=== PATIENT | female | born 1930 | race African-American/Black ===

== ENCOUNTER 2021-12-23 09:41 | Inpatient (IN) | payer MEDICARE, OTHER ==
[~2021-12-23] VITALS: Ht 154.9 cm; Wt 90.7 kg
[2021-12-23] MEDS ORDERED: METHYLPREDNISOLONE SOD SUCC 125 MG/2ML VIAL IV STA (10:28)
[2021-12-23] MEDS ORDERED: ALBUTEROL/IPRATROPIUM 3 ML NEB NEB ONE (10:30)
[2021-12-23 10:49] LABS: BASOPHILS # (AUTO) 0.1 (0.0-0.1); BASOPHILS % 0.6 % (0.0-1.0); EOSINOPHILS # (AUTO) 0.3 (0.0-0.4); EOSINOPHILS % 3.2 % (0.0-6.0); HEMATOCRIT 42.1 % (34.2-44.1); HEMOGLOBIN 12.6 g/dL (12.0-16.0); LYMPHOCYTES # (AUTO) 2.5 (1.0-3.2); LYMPHOCYTES % 24.2 % (18.0-39.1); MEAN CORPUSCULAR HEMOGLOBIN 27.8 pg (28-32); MEAN CORPUSCULAR HGB CONC 29.9 g/dL (31-35); MEAN CORPUSCULAR VOLUME 92.9 fL (81-99); MONOCYTES # (AUTO) 0.7 (0.2-0.8); MONOCYTES % 6.6 % (4.4-11.3); NEUTROPHILS # (AUTO) 6.6 (2.1-6.9); NEUTROPHILS % 65.1 % (38.7-80.0); PLATELET COUNT 225 x10e3/uL (140-360); RED BLOOD COUNT 4.53 x10e6/uL (3.6-5.1); RED CELL DISTRIBUTION WIDTH 13.3 % (11.7-14.4)
[2021-12-23 11:11] LABS: INR 0.96; PROTHROMBIN TIME 13.7 seconds (11.9-14.5)
[2021-12-23 11:12] LABS: PARTIAL THROMBOPLASTIN TIME 33.4 seconds (23.8-35.5)
[2021-12-23 11:17] LABS: ALBUMIN 3.4 g/dL (3.5-5.0); ALBUMIN/GLOBULIN RATIO 0.8 (0.8-2.0); ANION GAP 14.4 mmol/L (8-16); CALCIUM 9.4 mg/dL (8.4-10.2); CREATININE, SERUM 0.93 mg/dL (0.57-1.11); POTASSIUM 4.4 mmol/L (3.5-5.1)
[2021-12-23 11:24] LABS: CREATINE KINASE MB 1.3 ng/mL (0-5.0)
[2021-12-23] MEDS ORDERED: ONDANSETRON HCL INJ 2MG/ML 2ML 2 MG/ML VIAL IV PRN (13:15)
[2021-12-23] MEDS: METHYLPREDNISOLONE SOD SUCC 125 MG/2ML VIAL IV SCH ×2 (13:48→21:44)
[2021-12-23] MEDS ORDERED: FUROSEMIDE INJ 10 MG/ML 2 ML VIAL IV ONE (14:15)
[2021-12-23] MEDS: NITROGLYCERIN 2% OINT 1 GM PKT TOP SCH ×2 (14:24→23:07)
[2021-12-23] MEDS: ALBUTEROL/IPRATROPIUM 3 ML NEB NEB SCH ×3 (14:50→23:15)
[2021-12-23] MEDS: BENZONATATE 100 MG CAP PO SCH ×2 (15:26→21:42)
[2021-12-23 16:52] LABS: CREATINE KINASE MB 0.7 ng/mL (0-5.0)
[2021-12-23] MEDS ORDERED: SIMVASTATIN20 MG PO (20:45)
[2021-12-23] MEDS ORDERED: METOPROLOL SUCC25 MG PO (20:45)
[2021-12-23 20:53] VITALS: BP 165/79
[2021-12-23 20:55] VITALS: BP 165/79
[2021-12-23 21:00] VITALS: BP 165/79
[2021-12-23] MEDS ORDERED: METOPROLOL SUCCINATE 25 MG TAB XL PO ONE (21:15)
[2021-12-23] MEDS ORDERED: ACETAMINOPHEN 325 MG TAB PO PRN (22:00)
[2021-12-24] VITALS (8 sets, daily range): BP systolic 134–200; BP diastolic 59–86
[2021-12-24] MEDS: ALBUTEROL/IPRATROPIUM 3 ML NEB NEB SCH ×6 (02:04→23:05)
[2021-12-24] MEDS: NITROGLYCERIN 2% OINT 1 GM PKT TOP SCH ×3 (05:02→17:32)
[2021-12-24 05:03] LABS: BASOPHILS % 0.1 % (0.0-1.0); HEMATOCRIT 40.2 % (34.2-44.1); HEMOGLOBIN 12.6 g/dL (12.0-16.0); LYMPHOCYTES % 7.4 % (18.0-39.1); MEAN CORPUSCULAR HEMOGLOBIN 28.2 pg (28-32); MEAN CORPUSCULAR HGB CONC 31.3 g/dL (31-35); MONOCYTES # (AUTO) 0.2 (0.2-0.8); MONOCYTES % 1.2 % (4.4-11.3); NEUTROPHILS # (AUTO) 12.6 (2.1-6.9); PLATELET COUNT 243 x10e3/uL (140-360); RED BLOOD COUNT 4.47 x10e6/uL (3.6-5.1); RED CELL DISTRIBUTION WIDTH 13.1 % (11.7-14.4)
[2021-12-24 05:08] LABS: MEAN CORPUSCULAR VOLUME 89.9 fL (81-99)
[2021-12-24] MEDS: GUAIFENESIN/DEXTROMETHORPHAN LIQD 5 ML UDC NG PRN ×2 (05:21→10:56)
[2021-12-24] MEDS: METHYLPREDNISOLONE SOD SUCC 125 MG/2ML VIAL IV SCH (05:21)
[2021-12-24 05:35] LABS: ALBUMIN 3.3 g/dL (3.5-5.0); ALBUMIN/GLOBULIN RATIO 0.8 (0.8-2.0); ANION GAP 18.5 mmol/L (8-16); CALCIUM 9.3 mg/dL (8.4-10.2); CHOL/HDL RATIO 2.9 (3.0-3.6); CREATININE, SERUM 0.96 mg/dL (0.57-1.11); POTASSIUM 3.5 mmol/L (3.5-5.1)
[2021-12-24 05:54] LABS: CREATINE KINASE MB 1.8 ng/mL (0-5.0)
[2021-12-24 06:11] LABS: BAND NEUTROPHILS % (MANUAL) 1 %; LYMPHOCYTES % (MANUAL) 9 % (19-48); NEUTROPHILS % (MANUAL) 90 % (40-74); PLATELET ESTIMATE ADEQUATE; PLATELET MORPHOLOGY COMMENT NORMAL
[2021-12-24] MEDS: LORATADINE 10 MG TAB PO SCH (09:42)
[2021-12-24] MEDS: METOPROLOL SUCCINATE 25 MG TAB XL PO SCH (09:42)
[2021-12-24] MEDS: BENZONATATE 100 MG CAP PO SCH ×3 (09:42→22:16)
[2021-12-24] MEDS: SIMVASTATIN 20 MG TAB PO SCH (09:42)
[2021-12-24] MEDS: NIFEDIPINE CR 30 MG TAB PO SCH ×2 (10:56→22:16)
[2021-12-24] MEDS: FUROSEMIDE INJ 10 MG/ML 2 ML VIAL IV SCH ×2 (14:14→22:17)
[2021-12-25] VITALS (7 sets, daily range): BP systolic 111–138; BP diastolic 52–65
[2021-12-25] MEDS: ALBUTEROL/IPRATROPIUM 3 ML NEB NEB SCH ×6 (03:55→23:55)
[2021-12-25] MEDS: NITROGLYCERIN 2% OINT 1 GM PKT TOP SCH ×6 (06:00→23:28)
[2021-12-25] MEDS: FUROSEMIDE INJ 10 MG/ML 2 ML VIAL IV SCH ×3 (06:22→21:16)
[2021-12-25] MEDS: GUAIFENESIN/DEXTROMETHORPHAN LIQD 5 ML UDC NG PRN ×2 (06:25→09:37)
[2021-12-25] MEDS: METOPROLOL SUCCINATE 25 MG TAB XL PO SCH (09:38)
[2021-12-25] MEDS: LORATADINE 10 MG TAB PO SCH (09:38)
[2021-12-25] MEDS: SIMVASTATIN 20 MG TAB PO SCH (09:38)
[2021-12-25] MEDS: BENZONATATE 100 MG CAP PO SCH ×3 (09:38→21:16)
[2021-12-25] MEDS: NIFEDIPINE CR 30 MG TAB PO SCH ×2 (09:38→21:17)
[2021-12-25] MEDS ORDERED: ONDANSETRON HCL 4 MG ORAL DISINTEGRATING TAB PO PRN (12:45)
[2021-12-25] MEDS: METHYLPREDNISOLONE SOD SUCC 40 MG/ML VIAL 1ML IV SCH ×2 (13:01→21:16)
[2021-12-26] VITALS: BP 114/59
[2021-12-26] MEDS: ALBUTEROL/IPRATROPIUM 3 ML NEB NEB SCH ×2 (03:40→07:00)
[2021-12-26 04:00] VITALS: BP 109/48
[2021-12-26] MEDS: NITROGLYCERIN 2% OINT 1 GM PKT TOP SCH (05:32)
[2021-12-26] MEDS: FUROSEMIDE INJ 10 MG/ML 2 ML VIAL IV SCH (05:36)
[2021-12-26 08:04] VITALS: BP 118/53
[2021-12-26 08:23] VITALS: BP 118/53
[2021-12-26] MEDS ORDERED: NIFEDIPINE ER30 M1 PO (08:51)
[2021-12-26] MEDS ORDERED: Guaifenesin/Dextromethorphan NG (08:51)
[2021-12-26] MEDS ORDERED: PREDNISONE20 MG PO (08:51)
[2021-12-26] MEDS ORDERED: ZITHROMAX500 MG PO (08:51)
[2021-12-26] MEDS ORDERED: CEPHALEXIN500 MG PO (08:51)
[2021-12-26] MEDS ORDERED: LORATADINE10 MG PO (08:51)
[2021-12-26] MEDS ORDERED: Benzonatate PO (08:51)
[2021-12-26] MEDS ORDERED: FUROSEMIDE40 MG PO (08:53)
[2021-12-26] MEDS: METHYLPREDNISOLONE SOD SUCC 40 MG/ML VIAL 1ML IV SCH (09:39)
[2021-12-26] MEDS: NIFEDIPINE CR 30 MG TAB PO SCH (09:40)
[2021-12-26] MEDS: SIMVASTATIN 20 MG TAB PO SCH (09:40)
[2021-12-26] MEDS: BENZONATATE 100 MG CAP PO SCH (09:40)
[2021-12-26] MEDS: LORATADINE 10 MG TAB PO SCH (09:41)
[2021-12-26] MEDS: METOPROLOL SUCCINATE 25 MG TAB XL PO SCH (09:41)
== END 2021-12-26 11:25 | disposition home or self-care (01) | DRG 190 ==
LOC: ER 09:54 → INTOOBSV 13:13 → ERHOLD 13:13 → MED/SURG 19:45 → OBSVTOIN 12-25 09:45
PROVIDERS: ADMIT Internal Medicine; ATTEND Internal Medicine
DX: J44.1 Chronic obstructive pulmonary disease with (acute) exacerbation (principal); I50.33 Acute on chronic diastolic (congestive) heart failure; J96.20 Acute and chronic respiratory failure, unspecified whether with hypoxia or hypercapnia; I11.0 Hypertensive heart disease with heart failure; E78.5 Hyperlipidemia, unspecified; E66.9 Obesity, unspecified; Z88.5 Allergy status to narcotic agent; Z99.81 Dependence on supplemental oxygen; Z20.822 Contact with and (suspected) exposure to COVID-19; Z90.710 Acquired absence of both cervix and uterus; Z68.37 Body mass index [BMI] 37.0-37.9, adult
CPT/HCPCS: 36415; 71045; 71046; 80053; 80061; 82550; 82553; 83735; 83880; 84484; 85025; 85610; 85730; 87040; 87400; 93005; 93306; 94640; 94799; 96365; 99284; G0378; J0456; J0696; J1940; J2920; J2930; J7050